=== PATIENT | female | born 1990 | race Caucasian/White ===

== ENCOUNTER 2017-05-22 00:25 | Emergency (ER) | payer OTHER ==
[2017-05-22 00:31] VITALS: BP 125/86; PULSE 65; RESP 16; TEMP 98.8; O2SAT 97
[2017-05-22] MEDS ORDERED: AMOXICILLIN 250 MG PREPACK#4 BTL TAKEHOME ONE (01:29)
--- NOTE | 2017-05-22 01:31 | EDPHY ---
H & P Stated Complaint: c/o R ear pain beginning tonight Time Seen by Provider: 05/22/17 01:05 HPI/ROS: Chief Complaint: Ear pain HPI: 27-year-old woman started having ear pain in her right ear several hours ago. Patient has had a viral URI type symptoms for the last week or so. She was diagnosed with fluid Urgent Care. She did take 3 Advil with minimal relief of her pain. No discharge. Is no swimming activities. No history of ear infections in the past. Pain is about an 8/10. No headache. Has had some nasal congestion. Dry nonproductive cough. ROS: 10 point Review of Systems is negative except as noted in the HPI. PMH: Attention deficit hyperactivity disorder, depression Social History: No smoking, no alcohol, no recreational drug use Family History: non-contributory Physical Exam: Gen: Awake, Alert, No Distress HEENT: Ears: Left TM is normal, right TM is erythematous and bulging with effusion. Nose: no rhinorrhea Eyes: PERRLA, EOMI Mouth: Moist mucosa Neck: Supple, no JVD Chest: nontender, lungs clear to auscultation Heart: S1, S2 normal, no murmur Abd: Soft, non-tender, no guarding Back: no CVA tenderness, no midline tenderness Ext: no edema, non-tender Skin: no rash Neuro: CN II-XII intact, Sensation grossly intact, Strength 5/5 in bilateral upper and lower extremities - Medical/Surgical History Hx Asthma: No Hx Chronic Respiratory Disease: No Hx Diabetes: No Hx Cardiac Disease: No Hx Renal Disease: No Hx Cirrhosis: No Hx Alcoholism: No Hx HIV/AIDS: No Hx Splenectomy or Spleen Trauma: No Other PMH: adhd, anxeity - Social History Smoking Status: Never smoked Constitutional: Initial Vital Signs Temperature (C) 37.1 C 05/22/17 00:29 Heart Rate 65 05/22/17 00:29 Respiratory Rate 16 05/22/17 00:29 Blood Pressure 125/86 H 05/22/17 00:29 O2 Sat (%) 97 05/22/17 00:29 O2 Delivery Mode Room Air Allergies/Adverse Reactions: erythromycin base [Erythromycin Base] Allergy (Verified 05/22/17 00:31) Home Medications: Medication Instructions Recorded Bcp 12/30/13 Amoxicillin Trihydrate [Amoxil] 500 mg PO Q8H #30 cap 05/22/17 VYVANSE 05/22/17 Departure - Departure Disposition: Home, Routine, Self-Care Clinical Impression: Acute otitis media Condition: Good Instructions: Ear Infection (ED) Additional Instructions: Please take your full course of antibiotics. You may alternate ibuprofen with acetaminophen as needed for pain. Follow up with your primary care physician in 3-4 days if symptoms are not improving. Referrals: Janneth Graves MD [Primary Care Provider] - As per Instructions Prescriptions: Amoxicillin Trihydrate [Amoxil] 500 mg PO Q8H #30 cap
== END 2017-05-22 01:42 | disposition home or self-care (01) ==
DX: H66.91 Otitis media, unspecified, right ear (principal)

== ENCOUNTER 2018-06-09 10:10 | Emergency (ER) | payer OTHER ==
[2018-06-09] MEDS ORDERED: NS 1,000 ML IV ONE (10:24)
--- NOTE | 2018-06-09 10:24 | EDPHY ---
H & P Time Seen by Provider: 06/09/18 10:16 HPI/ROS: HPI: This is a 28-year-old female who presents with Chief Complaint: Nausea, vomiting, fatigue Location: Body Quality: Nausea, vomiting, fatigue Duration: 5 days Signs and Symptoms: no fever, + nausea,+ vomiting, no diarrhea, no urinary symptoms, no chest pain, no shortness of breath, no wheezing, no cough, + sore throat, no neck stiffness, no joint pain, no swollen glands, no ear pain, no rash, no drooling Timing: Acute, worsening Severity: Moderate Context: Patient presents that Thursday she woke up feeling "sick." Thursday she went to primary care provider in this facility due to having a sore throat and body aches accompanied by fatigue. Rapid strep and throat culture were negative. She was given oral steroids x3 days and Magic mouthwash with improvement in her symptoms. She started 3 days of her father Ari-Colby on Thursday. 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 Thursday she started to feel fatigue and nausea. She took the last dose of her Z-Colby. This morning around 9:00 a.m. She woke up feeling fatigue, body aches, nausea and vomited x1. She denies any abdominal pain, vaginal discharge, vaginal bleeding, diarrhea, fever, back pain, urinary symptoms. Received influenza vaccine in January of 2018. Modifying Factors: See above Comment: ROS: A comprehensive 10 system review of systems is otherwise negative aside from elements mentioned in the history of present illness. 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 Family history noncontributory. CONSTITUTIONAL: Moderate distress, crying, refusing to open eyes during exam, awake and alert, no obvious distress HEENT: Atraumatic and normocephalic, PERRL, EOMI. Nares patent; no rhinorrhea; no nasal mucosal edema. Tympanic membranes clear. Oropharynx clear, tonsils 2 + on the right and 1+ on the left with no erythema; uvula midline; no exudate and moist pink mucosa. Airway patent. No lymphadenopathy. No meningismus. Cardiovascular: Normal S1/S2, regular rate, regular rhythm, without murmur rub or gallop. PULMONARY/CHEST: Symmetrical and nontender. Clear to auscultation bilaterally. Good air movement. No accessory muscle usage. ABDOMEN: Soft, nondistended, nontender, no rebound, no guarding, no peritoneal signs, no masses or organomegaly. No CVAT. EXTREMITIES: 2/2 pulses, strength 5/5, no deformities, no clubbing, no cyanosis or edema. NEUROLOGICAL: no focal neuro deficits. GCS 15. Speech clear. SKIN: Warm and dry, no erythema. no rash. Good capillary refill. Source: Patient, Family Exam Limitations: Clinical condition - Medical/Surgical History Hx Asthma: No Hx Chronic Respiratory Disease: No Hx Diabetes: No Hx Cardiac Disease: No Hx Renal Disease: No Hx Cirrhosis: No Hx Alcoholism: No Hx HIV/AIDS: No Hx Splenectomy or Spleen Trauma: No Other PMH: adhd, anxeity - Social History Smoking Status: Never smoked Constitutional: Initial Vital Signs Temperature (C) 36.0 C 06/09/18 10:16 Heart Rate 62 06/09/18 10:16 Respiratory Rate 16 06/09/18 10:16 Blood Pressure 122/77 H 06/09/18 10:16 O2 Sat (%) 96 06/09/18 10:16 O2 Delivery Mode Room Air Allergies/Adverse Reactions: erythromycin base [Erythromycin Base] Allergy (Verified 05/22/17 00:31) Home Medications: Medication Instructions Recorded Adderall 10 MG (*) 06/09/18 Lexapro 06/09/18 Promethazine HCl 25 mg PO Q6 PRN #10 tablet 06/09/18 Medical Decision Making ED Course/Re-evaluation: Vital signs reviewed and stable upon arrival. No systemic signs. IV access, laboratory studies ordered Patient given 1 L normal saline, IV Toradol 30 mg, IV Decadron 10 mg, IV promethazine 12.5 mg No signs of tonsillar abscess/meningitis Abdomen is soft and nontender and doubt surgical process or need for imaging. 1210: Labs reviewed. No signs of anemia/platelet dysfunction/MATTHEW/elevated LFTs /electrolyte imbalance//mono. WBC 12 K without left shift 1215: Reassessed patient who reports feeling better. Advised supportive care, prescription for Phenergan, work excuse provided. This patient was seen under the supervision of my secondary supervising physician. I evaluated care for this patient with attending. Differential Diagnosis: Differential diagnosis includes but is not limited to viral syndrome, strep pharyngitis, infectious mononucleosis, upper respiratory infection, meningitis. - Data Points Laboratory Results: Laboratory Results 06/09/18 10:21 06/09/18 10:21 06/09/18 06/09/18 06/09/18 10:21 10:21 10:21 WBC 11.72 10^3/uL H 10^3/uL (3.80-9.50) RBC 5.44 10^6/uL H 10^6/uL (4.18-5.33) Hgb 15.5 g/dL g/dL (12.6-16.3) Hct 46.0 % % (38.0-47.0) MCV 84.6 fL fL (81.5-99.8) MCH 28.5 pg pg (27.9-34.1) MCHC 33.7 g/dL g/dL (32.4-36.7) RDW 12.8 % % (11.5-15.2) Plt Count 384 10^3/uL 10^3/uL (150-400) MPV 9.8 fL fL (8.7-11.7) Neut % (Auto) Not Reported Lymph % (Auto) Not Reported [place] % (Auto) Not Reported Eos % (Auto) Not Reported Baso % (Auto) Not Reported Nucleat RBC Rel Count Not Reported Absolute Neuts (auto) Not Reported Absolute Lymphs (auto) Not Reported Absolute Monos (auto) Not Reported Absolute Eos (auto) Not Reported Absolute Basos (auto) Not Reported Absolute Nucleated RBC Not Reported Immature Gran % Not Reported Seg Neutrophils % 37.0 % % Band Neutrophils % 0.0 % % Lymphocytes % 48.0 % % Monocytes % 8.0 % % Eosinophils % 4.0 % % Basophils % 0.0 % % Metamyelocytes % 0.0 % % Myelocytes % 3.0 % % Promyelocytes % 0.0 % % Blast Cells % 0.0 % % Immature Gran # Not Reported Absolute Seg Neuts 4.34 10^3/uL 10^3/uL (1.70-6.50) Absolute Band Neuts 0.00 10^3/uL 10^3/uL (0.00-0.70) Absolute Lymphocytes 5.63 10^3/uL H 10^3/uL (1.00-3.00) Absolute Monocytes 0.94 10^3/uL H 10^3/uL (0.30-0.80) Absolute Eosinophils 0.47 10^3/uL H 10^3/uL (0.03-0.40) Absolute Basophils 0.00 10^3/uL L 10^3/uL (0.02-0.10) Absolute Metamyelocyte 0.00 10^3/mL 10^3/mL (0.00-0.00) Absolute Myelocytes 0.35 10^3/mL H 10^3/mL (0.00-0.00) Absolute Promyelocytes 0.00 10^3/uL 10^3/uL (0.00-0.00) Absolute Plasma Cells 0.00 10^3/uL 10^3/uL (0.00-0.00) Nucleated RBCs 0 /100 WBC /100 WBC (0-0) Absolute Blast Cells 0.00 10^3/uL 10^3/uL (0.00-0.00) Plasma Cells % 0.0 % % Platelet Estimate ADEQUATE (ADEQ) Microcytic Cells 1+ H Oval Macrocytes 1+ H Sodium 136 mEq/L mEq/L (135-145) Potassium 3.8 mEq/L mEq/L (3.5-5.2) Chloride 102 mEq/L mEq/L (97-110) Carbon Dioxide 21 mEq/l L mEq/l (22-31) Anion Gap 13 mEq/L mEq/L (6-14) BUN 16 mg/dL mg/dL (7-23) Creatinine 0.7 mg/dL mg/dL (0.6-1.0) Estimated GFR > 60 Glucose 142 mg/dL H mg/dL (70-100) Calcium 9.2 mg/dL mg/dL (8.5-10.4) Total Bilirubin 0.2 mg/dL mg/dL (0.1-1.4) Conjugated Bilirubin 0.2 mg/dL mg/dL (0.0-0.5) Unconjugated Bilirubin 0.0 mg/dL mg/dL (0.0-1.1) AST 30 IU/L IU/L (14-46) ALT 36 IU/L IU/L (9-52) Alkaline Phosphatase 84 IU/L IU/L (38-126) Total Protein 7.6 g/dL g/dL (6.3-8.2) Albumin 4.2 g/dL g/dL (3.5-5.0) Beta HCG, Qual NEGATIVE Monoscreen NEGATIVE (NEGATIVE) Medications Given: Discontinued Medications Dexamethasone (Decadron Injection) 10 mg IVP EDNOW ONE Stop: 06/09/18 10:26 Last Admin: 06/09/18 10:45 Dose: 10 mg Sodium Chloride (Ns) 1,000 mls @ 0 mls/hr IV ONCE ONE; Wide Open PRN Reason: Protocol Stop: 06/09/18 10:25 Last Admin: 06/09/18 10:46 Dose: 1,000 mls Ketorolac Tromethamine (Toradol) 30 mg IVP EDNOW ONE Stop: 06/09/18 10:26 Last Admin: 06/09/18 10:46 Dose: 30 mg Promethazine HCl (Phenergan) 12.5 mg IVP ONCE ONE Stop: 06/09/18 10:48 Last Admin: 06/09/18 10:53 Dose: 12.5 mg Departure - Departure Disposition: Home, Routine, Self-Care Clinical Impression: Viral syndrome Condition: Good Instructions: Viral Syndrome (ED) Additional Instructions: Rest as much as possible until you are feeling better. Consume a minimum of 8-10 glasses of water or electrolyte fluid replacement drinks that include Gatorade, Powerade, Pedialyte. Eat a bland diet for the next 48 hours and then slowly advance as tolerated. Take Phenergan 1 tab every 6 hours as needed for nausea, vomiting. Return to the Emergency Room if symptoms do not resolve in the next 48-72 hours , you spike a fever > 102 F, or experience intractable abdominal pain/nausea/ vomiting. Referrals: Patient,NotPresent [Unknown] - As per Instructions Stand Alone Forms: Work Excuse Prescriptions: Promethazine HCl 25 mg PO Q6 PRN #10 tablet PRN Reason: Nausea/Vomiting, Use 1st
[2018-06-09] MEDS ORDERED: DEXAMETHASONE 10 MG/ML VIAL IVP ONE (10:25)
[2018-06-09] MEDS ORDERED: KETOROLAC 30 MG/1 ML SDV IVP ONE (10:25)
[2018-06-09] MEDS ORDERED: PROMETHAZINE HCL 25 MG/ML INJ IVP ONE (10:47)
[2018-06-09 11:20] LABS: PLATELET COUNT 384 10^3/uL (150-400)
[2018-06-09 12:24] VITALS: BP 106/70
== END 2018-06-09 12:23 | disposition home or self-care (01) ==
LOC: EDUNIT#
DX: B34.9 Viral infection, unspecified (principal); F90.9 Attention-deficit hyperactivity disorder, unspecified type; F41.9 Anxiety disorder, unspecified
CPT/HCPCS: 96374; J1100; J1885; J2550